=== PATIENT | female | born 1990 | race Caucasian/White ===

== ENCOUNTER 2016-11-06 02:44 | Emergency (ER) | payer SELFPAY ==
[2016-11-06] MEDS ORDERED: TORADOL 60 MG VIAL IM ONE (02:55)
[2016-11-06] MEDS ORDERED: NORFLEX INJ IM ONE (02:55)
[2016-11-06] MEDS ORDERED: NORFLEX INJ ONE (02:57)
[2016-11-06] MEDS ORDERED: TORADOL 60 MG VIAL ONE (02:57)
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
[2016-11-06 02:59] VITALS: BMI 28.3
--- NOTE | 2016-11-06 03:22 | CT ---
EXAM: CT CERVICAL SPINE WITHOUT CONTRAST INDICATION: Neck pain COMPARISION: No priors TECHNIQUE: Axial CT examination of the cervical spine was performed without intravenous contrast. Coronal and sa gittal planes were reconstructed using the axial data. FINDINGS: There is normal alignment of the cervical vertebral bodies. No fracture or subluxation. The vertebral body heights are preserved and the intervertebral discs appear unremarkable. The facets are intact. The surrounding soft tissues are normal. IMPRESSION: Normal cervical spine CT examination. Reported By:
[2016-11-06 03:44] VITALS: BP 138/94
== END 2016-11-06 03:44 | disposition home or self-care (01) ==
LOC: ER 02:44
DX: S16.1XXA Strain of muscle, fascia and tendon at neck level, initial encounter (principal); Y33.XXXA Other specified events, undetermined intent, initial encounter; Y92.9 Unspecified place or not applicable
CPT/HCPCS: 72125; 96372; 99282; J1885; J2360

== ENCOUNTER 2016-11-20 04:35 | Emergency (ER) | payer SELFPAY ==
[2016-11-20 04:42] VITALS: BP 188/116; BMI 27.6
[2016-11-20 05:10] LABS: BILIRUBIN,URINE NEGATIVE (NEGATIVE); BLOOD/HEMOGLOBIN,URINE 2+ (NEGATIVE); GLUCOSE, URINE NEGATIVE (NEGATIVE); KETONES,URINE NEGATIVE (NEGATIVE); LEUKOCYTE ESTERASE ,URINE 3+ (NEGATIVE); NITRITES,URINE NEGATIVE (NEGATIVE); PROTEIN,URINE 2+ (NEGATIVE); UROBILINOGEN,URINE NORMAL (NORMAL)
[2016-11-20 05:12] LABS: APPEARANCE,URINE CLOUDY (CLEAR); COLOR,URINE YELLOW (YELLOW)
[2016-11-20 05:15] LABS: BACTERIA,URINE 2+ /HPF (NEGATIVE); SQUAMOUS EPITHELIAL CELL,UR RARE /HPF (NEGATIVE)
[2016-11-20] MEDS ORDERED: PYRIDIUM PO ONE ×2 (05:28→05:30)
[2016-11-20] MEDS ORDERED: LEVAQUIN TAB 250 MG ONE (05:29)
[2016-11-20] MEDS ORDERED: LEVAQUIN TAB 500 MG ONE (05:30)
[2016-11-20] MEDS ORDERED: TORADOL 60 MG VIAL IM ONE (05:32)
[2016-11-20] MEDS ORDERED: TORADOL 60 MG VIAL ONE (05:33)
--- NOTE | 2016-11-20 05:33 | DR.GENAD ---
HPI - Complaint/Symptoms Chief Complaint Doctors Comments: Patient has been treating her UTI with monistat with a presumed yeast infection. Chief Complaint:: PT STATES SHE HAS BEEN HAVING "YEAST INFECTION SYMPTOMS" NOW HAS BACK PAIN, TROUBLE URINATING, BURING. 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 - Family History History of Family Medical Conditions: Yes Family Medical History: Diabetes Mellitus, Cancer - Social History Do you use any recreational Drugs:: No - infectious screening Have you traveled outside the country in the last 6 months?: No ROS - Review of Systems Eyes: No Symptoms Reported ENTM: No Symptoms Reported Respiratoy: No Symptoms Reported Cardiovascular: No Symptoms Reported Gastrointestinal/Abdominal: No Symptoms Reported, Abdominal Pain Neurological: No Symptoms Reported Musculoskeletal: No Symptoms Reported Integumentary: No Symptoms Reported Hematologic/Lymphatic: No Symptoms Reported Endocrine: No Symptoms Reported Psychiatric: No Symptoms Reported All Other Systems: Reviewed and Negative PE - Vital Signs Vitals: Temperature 97.6 F Pulse Rate 81 Respiratory Rate 18 Blood Pressure [Left Arm] 138/94 Blood Pressure 188/116 O2 Sat by Pulse Oximetry 96 - General Limitations: No Limitations General Appearance: Alert, In No Apparent Distress - Head Head Exam: Normal Inspection, Atraumatic - Eyes Eye exam: Normal Appearance, PERRL, EOMI - ENT ENT Exam: Normal Exam External Ear Exam: Normal External Inspection TM/Canal Exam: Bilateral Normal Nose Exam: Normal Nose Exam Mouth Exam: Normal Inspection Throat Exam: Normal Inspection - Neck Neck Exam: Normal Inspection - Chest Chest Inspection: Normal Inspection - Respiratory Respiratory Exam: Normal Lung Sounds Bilat Respiratory Exam: Bilateral Clear to Auscultation - Cardiovascular Cardiovascular Exam: Regular Rate - Abdominal Exam Abdominal Exam: Normal Inspection Abdominal Tenderness: RUQ, Suprapubic, Diffuse - Extremities Extremities Exam: Normal Inspection, Full ROM - Back Back Exam: Normal Inspection, Full ROM - Neurologic Neurological Exam: Alert, Oriented X3, CN II-XII Intact - Psychiatric Psychiatric Exam: Normal Affect, Normal Mood, Depressed - Skin Skin Exam: Warm, Dry, Intact ROR - Labs Reviewed Laboratory Results Reviewed?: Yes (2+bld,3+leuko,15-20 wbc) Laboratory: 11/20/16 04:55 Urine,Clean Catch Urine Culture - Final Specimen Type Clean catch urine 11/20/16 04:55 Urine Color Yellow (YELLOW) 11/20/16 04:55 Urine Appearance Cloudy (CLEAR) 11/20/16 04:55 Urine pH 6.0 (5.0 - 8.0) 11/20/16 04:55 Ur Specific [place] 1.025 (1.000-1.030) 11/20/16 04:55 Urine Protein 2+ (NEGATIVE) 11/20/16 04:55 Urine Glucose (UA) Negative (NEGATIVE) 11/20/16 04:55 Urine Ketones Negative (NEGATIVE) 11/20/16 04:55 Urine Occult Blood 2+ (NEGATIVE) 11/20/16 04:55 Urine Nitrite Negative (NEGATIVE) 11/20/16 04:55 Urine Bilirubin Negative (NEGATIVE) 11/20/16 04:55 Urine Urobilinogen Normal (NORMAL) 11/20/16 04:55 Ur Leukocyte Esterase 3+ (NEGATIVE) 11/20/16 04:55 Urine RBC 8-10 /HPF (NEGATIVE) 11/20/16 04:55 Urine WBC 15-20 /HPF (NEGATIVE) 11/20/16 04:55 Ur Squamous Epith Cells Rare /HPF (NEGATIVE) 11/20/16 04:55 Urine Bacteria 2+ /HPF (NEGATIVE) 11/20/16 04:55 Ur Culture Indicated? Yes/culture set up 11/20/16 04:55 - Diagnosis Discharge Problem: UTI (urinary tract infection) Qualifiers: Urinary tract infection type: acute cystitis Hematuria presence: with hematuria Qualified Code(s): N30.01 - Acute cystitis with hematuria - Discharge Plan Disposition: HOME, SELF-CARE Condition: Stable Prescriptions: Ketorolac Tromethamine [Toradol Tab] 10 mg PO Q8H PRN #12 tab PRN Reason: Pain Levofloxacin [LEVAQUIN TAB 750 MG *] 750 mg PO Q24H #7 tab Phenazopyridine HCl 200 mg PO TID #9 tablet - Follow ups/Referrals Follow ups/Referrals: NFD,None [Primary Care Provider] - 3 days - Instructions Instructions: Urinary Tract Infection, Adult, [id number]
[2016-11-20] MEDS ORDERED: LEVAQUIN TAB 750 MG PO SCH (06:00)
== END 2016-11-20 05:52 | disposition home or self-care (01) ==
LOC: ER 04:35
DX: N30.01 Acute cystitis with hematuria (principal)
CPT/HCPCS: 81001; 87086; 96372; 99282; J1885